=== PATIENT | female | born 1985 | race Caucasian/White ===

== ENCOUNTER 2024-01-30 11:40 | Outpatient (CLI) | payer OTHER | END 2024-01-30 11:46 | disposition home or self-care (01) | LOC: LAB 11:40 | DX: N64.3 Galactorrhea not associated with childbirth (principal) ==

== ENCOUNTER 2024-01-31 13:34 | Outpatient (CLI) | payer OTHER | END 2024-01-31 13:40 | disposition home or self-care (01) | LOC: MAMO-SONO 13:34 | PROVIDERS: ATTEND Obstetrics & Gynecology | DX: N60.11 Diffuse cystic mastopathy of right breast (principal); N60.12 Diffuse cystic mastopathy of left breast; N60.19 Diffuse cystic mastopathy of unspecified breast ==